=== PATIENT | female | born 1955 | race Caucasian/White ===

== ENCOUNTER 2017-04-24 10:32 | Outpatient (CLI) | payer OTHER ==
[2017-04-24 11:46] LABS: Hematocrit 37.9 % (36.0-47.0); Mean Platelet Volume 7.7 fL (7.4-10.4); White Blood Cell (WBC) Count 4.2 thou/uL (4.8-10.8)
[2017-04-24 12:03] LABS: Anion Gap 10 mmol/L (10-20); BUN (Urea Nitrogen) 14 mg/dL (9.8-20.1); Calc. Creatinine Clearance 0 mL/min (70-130); Calcium 9.5 mg/dL (7.8-10.44); Carbon Dioxide 31 mmol/L (23-31); Chloride 104 mmol/L (98-107); Estimated GFR-MDRD 59
--- NOTE | 2017-04-24 13:27 | EKG ---
Test Reason : Blood Pressure : / mmHG Vent. Rate : 066 BPM Atrial Rate : 066 BPM P-R Int : 144 ms QRS Dur : 078 ms QT Int : 390 ms P-R-T Axes : 080 061 064 degrees QTc Int : 408 ms Normal sinus rhythm Normal ECG When compared with ECG of 22-AUG-2016 10:47, No significant change was found Confirmed by DR. Jorge MINOR (3) on 04/24/2017 1:27:20 PM Referred By: WILLY Confirmed By:DR. Jorge MINOR
== END 2017-04-24 10:33 | disposition home or self-care (01) ==
LOC: LABBT 10:32
PROVIDERS: ATTEND Neurological Surgery
DX: Z01.818 Encounter for other preprocedural examination (principal); M54.12 Radiculopathy, cervical region
CPT/HCPCS: 80048; 85027; 93005; 93010

== ENCOUNTER 2017-05-21 10:40 | Outpatient (CLI) | payer OTHER ==
--- NOTE | 2017-05-21 13:16 | RAD ---
CERVICAL SPINE THREE VIEWS: History: 61-year-old female with history of cervicalgia with surgery on 05-06-17. Comparison: 08-27-13 FINDINGS: Anterior cervical fusion changes at C4-5 which are new. Old fusion changes are noted at C5-6 and C6-7 . The previously noted anterior metal plate and screws have been removed. There is some prevertebral soft tissue swelling and thickening of the prevertebral space from the C4 level caudally, probably re lated to recent prior surgery. Numerous surgical clips are noted in the mid and anterior neck. C2 odo ntoid and upper C1 obscured on the AP open mouth view. C7-T1 is also obscured on the lateral view. IMPRESSION: Recent anterior cervical fusion changes at C4-5. Old fusion changes at C5-6 and C6-7. Prevertebral so ft tissue fullness or swelling from C4 caudally, probably related to recent surgery. No significant m alalignment. POS: [facility]
== END 2017-05-21 10:41 | disposition home or self-care (01) ==
LOC: TBSIIMAG 10:40
PROVIDERS: ATTEND Physician Assistant
DX: M54.2 Cervicalgia (principal)
CPT/HCPCS: 72040

== ENCOUNTER 2017-07-09 15:44 | Outpatient (CLI) | payer OTHER ==
--- NOTE | 2017-07-09 16:38 | RAD ---
THREE VIEWS CERVICAL SPINE: 07/09/17 HISTORY: Cervicalgia. Followup surgery. COMPARISON: 07/21/16. Again noted are postsurgical changes of the cervical spine. Anterior plate and screws again transfix the C4-5 level with intradiscal prosthesis at the C4-5, C5-6 and C6-7 levels which are unchanged in p osition. Vertebral body heights are within normal limits. No fracture or subluxation is seen. C1 to c ervicothoracic junction is seen on the lateral view. Multiple surgical clips are seen overlying the a nterior neck. The prominence of the prevertebral soft tissues at the C5-6 and C6-7 levels is again no rick and unchanged. IMPRESSION: Stable postsurgical changes of the cervical spine with stable prominence and fullness of the preverte bral soft tissues anterior to lower cervical spine. POS: [facility]
== END 2017-07-09 15:45 | disposition home or self-care (01) ==
LOC: TBSIIMAG 15:44
PROVIDERS: ATTEND Neurological Surgery
DX: M54.2 Cervicalgia (principal); Z98.1 Arthrodesis status
CPT/HCPCS: 72040

== ENCOUNTER 2018-03-04 11:58 | Outpatient (CLI) | payer OTHER | END 2018-03-04 11:59 | disposition home or self-care (01) | LOC: BICMAMMO 11:58 | PROVIDERS: ATTEND Internal Medicine Hematology & Oncology | DX: Z12.31 Encounter for screening mammogram for malignant neoplasm of breast (principal); Z85.3 Personal history of malignant neoplasm of breast | CPT/HCPCS: 77063; 77067 ==

== ENCOUNTER 2018-08-06 09:24 | Outpatient (CLI) | payer BC ==
[2018-08-06] MEDS ORDERED: Gadobenate Dimeglumine 529 MG/1 ML (20ML VIAL) ONE (10:26)
--- NOTE | 2018-08-06 10:57 | RAD ---
LUMBAR SPINE THREE VIEWS: Indication: Lumbar stenosis/claudication. IMPRESSION: No abnormal translational motion. Moderate disc degenerative disease at L5-S1. Mild to moderate disc degenerative disease at L3-4. POS: [facility]
--- NOTE | 2018-08-06 12:42 | MRI ---
MRI LUMBAR SPINE WITH AND WITHOUT CONTRAST: DATE: 08-06-2018 HISTORY: 62-year-old female with M48.062, lumbar stenosis with claudication COMPARISON: 07-13-16 TECHNIQUE: Multiple sequences obtained in axial and sagittal planes, pre and post IV injection of gadolinium-bas ed contrast agent: 16 Ml MultiHance FINDINGS: For the purposes of this report, it will be assumed that there are five lumbar type vertebrae. Verteb ral body heights are maintained. No major spondylolisthesis. Mild disc space narrowing at L3-4. Moder ate to severe disc space narrowing at L5-S1 with Modic type II endplate changes and endplate irregula rity. Mild to moderate disc space narrowing at T11-12. L4-5 and the rest of the disc spaces are maint ained. T11-12: Large Schmorl's node. Again noted is the central and bilateral paracentral broad based disc h erniation which indents the ventral aspect of the spinal cord. Overall, there is mild to moderate alba tral spinal canal stenosis. No high grade neural foraminal stenosis. No major interval change. T12-L1: Normal. L1-2: There is a small focal central disc herniation which abuts the ventral surface of the conus med ullaris. No significant central stenosis, disc space narrowing or neural foraminal stenosis. No inter vasyl change. Disc herniation also abuts the ventral nerve roots as they emerge from the lower spinal c ord. L2-3: Normal. L3-4: Previously, there was severe central spinal canal stenosis. There has been interval laminectomy at this level, with bony hypertrophy of posterior elements, which questionably represents only bone chip fusion. There was previously a moderate to large disc bulge. This now has midline enhancement re presenting post surgical scar tissue, in addition to residual bulging disc material, which together s till contribute to the severe central stenosis. The degree of central spinal canal stenosis is even w orse now, with severe crowding of the cauda equina and obliteration of CSF signal. This results in to rtuosity of the cauda equina inferior and superior to this level, to a greater degree than previously . There is moderate to severe right neural foraminal stenosis, similar to previous MRI. There is cassi re left neural foraminal stenosis. L4-5: Moderate ligamentum flavum thickening and degenerative facet hypertrophy, plus diffuse disc bul ge (with posterior midline tear). These result in severe central spinal canal stenosis, and moderate bilateral neural foraminal stenosis. (Similar to the previous MRI). L5-S1: There is a right hemilaminotomy defect. No high grade central spinal canal stenosis. Bilateral moderate degenerative facet changes. Degenerative retrolisthesis of L5 on S1. Moderate bilateral dione ral foraminal stenosis. IMPRESSION: 1. Status post laminectomy at L3-4. 2. Despite this, there is interval worsening of extremely severe central spinal canal stenosis at L3- 4, with severe compression of the cauda equina. 3. Severe central spinal canal stenosis at L4-5 remains unchanged, including lateral recess stenosis. 4. Multilevel high grade neural foraminal stenosis, worst at left L3-4. 5. Status post right hemilaminotomy at L5-S1. MARBELLA Jiménez POS: [facility]
== END 2018-08-06 09:25 | disposition home or self-care (01) ==
LOC: TBSIIMAG 09:24
PROVIDERS: ATTEND Neurological Surgery
DX: M48.062 Spinal stenosis, lumbar region with neurogenic claudication (principal); M51.37 Other intervertebral disc degeneration, lumbosacral region; M51.36 Other intervertebral disc degeneration, lumbar region; Z98.890 Other specified postprocedural states
CPT/HCPCS: 72100; 72158; A9577

== ENCOUNTER 2019-03-24 13:37 | Outpatient (CLI) | payer BC ==
--- NOTE | 2019-03-24 16:17 | MMO ---
Bilateral MAMMO Bilat Screen DDI+DOV. CLINICAL HISTORY: Patient is 63 years old and is seen for screening. The patient has no family history of breast cancer. The patient has no personal history of cancer. 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 VIEWS: The views performed were: bilateral craniocaudal with tomosynthesis and bilateral mediolateral oblique with tomosynthesis. FILMS COMPARED: The present examination has been compared to prior imaging studies performed at [facility] on 01/31/2017 and 03/04/2018, and at [facility] on 01/06/2015 and 01/19/2016. This study has been interpreted with the assistance of computer-aided detection. MAMMOGRAM FINDINGS: There are scattered fibroglandular densities. Finding 1: There are stable benign appearing calcifications seen in both breasts. Finding 2: There is a stable post-surgical scar seen in the left breast. There are no suspicious masses, suspicious calcifications, or new areas of architectural distortion. IMPRESSION: THERE IS NO MAMMOGRAPHIC EVIDENCE OF MALIGNANCY. A ROUTINE FOLLOW-UP MAMMOGRAM IN 1 YEAR IS RECOMMENDED. THE RESULTS OF THIS EXAM WERE SENT TO THE PATIENT. ACR BI-RADS Category 2 - Benign finding MAMMOGRAPHY NOTE: 1. A negative mammogram report should not delay a biopsy if a dominant of clinically suspicious mass is present. 2. Approximately 10% to 15% of breast cancers are not detected by mammography. 3. Adenosis and dense breasts may obscure an underlying neoplasm. Reported by: DARELL EPPERSON MD Electonically Signed: [id number]
== END 2019-03-24 13:38 | disposition home or self-care (01) ==
LOC: BICMAMMO 13:37
PROVIDERS: ATTEND Internal Medicine Hematology & Oncology
DX: Z12.31 Encounter for screening mammogram for malignant neoplasm of breast (principal); Z98.890 Other specified postprocedural states
CPT/HCPCS: 77063; 77067

== ENCOUNTER 2020-02-19 17:30 | Outpatient (CLI) | payer BC | END 2020-02-19 17:31 | disposition home or self-care (01) | LOC: SLEEPLAB 17:30 | PROVIDERS: ATTEND Family Medicine | DX: G47.33 Obstructive sleep apnea (adult) (pediatric) (principal); F41.8 Other specified anxiety disorders; G47.00 Insomnia, unspecified; K21.9 Gastro-esophageal reflux disease without esophagitis; R06.83 Snoring; I10 Essential (primary) hypertension | CPT/HCPCS: 95806 ==

== ENCOUNTER 2020-03-28 10:50 | Outpatient (CLI) | payer BC ==
--- NOTE | 2020-03-28 12:12 | MMO ---
Bilateral MAMMO Bilat Screen DDI+DOV. CLINICAL HISTORY: Patient is 64 years old and is seen for screening. The patient has no family history of breast cancer. The patient has no personal history of cancer. 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 VIEWS: The views performed were: bilateral craniocaudal with tomosynthesis and bilateral mediolateral oblique with tomosynthesis. FILMS COMPARED: The present examination has been compared to prior imaging studies performed at [facility] on 01/31/2017, 03/04/2018 and 03/24/2019, and at [facility] on 01/19/2016. This study has been interpreted with the assistance of computer-aided detection. MAMMOGRAM FINDINGS: There are scattered fibroglandular densities. There are post operative changes seen in the left breast. There are no suspicious masses, suspicious calcifications, or new areas of architectural distortion. IMPRESSION: THERE IS NO MAMMOGRAPHIC EVIDENCE OF MALIGNANCY. A ROUTINE FOLLOW-UP MAMMOGRAM IN 1 YEAR IS RECOMMENDED. THE RESULTS OF THIS EXAM WERE SENT TO THE PATIENT. ACR BI-RADS Category 2 - Benign finding MAMMOGRAPHY NOTE: 1. A negative mammogram report should not delay a biopsy if a dominant of clinically suspicious mass is present. 2. Approximately 10% to 15% of breast cancers are not detected by mammography. 3. Adenosis and dense breasts may obscure an underlying neoplasm. Reported by: KEYUR MOE MD Electonically Signed: [id number]
== END 2020-03-28 10:51 | disposition home or self-care (01) ==
LOC: BICMAMMO 10:50
PROVIDERS: ATTEND Internal Medicine Hematology & Oncology
DX: Z12.31 Encounter for screening mammogram for malignant neoplasm of breast (principal); Z85.3 Personal history of malignant neoplasm of breast; Z98.890 Other specified postprocedural states
CPT/HCPCS: 77063; 77067

== ENCOUNTER 2021-09-04 12:07 | Outpatient (CLI) | payer MEDICARE, BC | END 2021-09-04 12:08 | disposition home or self-care (01) | LOC: ULT 12:07 | PROVIDERS: ATTEND Family Medicine | DX: R00.2 Palpitations (principal); I95.1 Orthostatic hypotension; G47.33 Obstructive sleep apnea (adult) (pediatric); R53.83 Other fatigue; I08.1 Rheumatic disorders of both mitral and tricuspid valves | CPT/HCPCS: 93225; 93226; 93306 ==

== ENCOUNTER 2022-01-03 10:19 | Outpatient (CLI) | payer MEDICARE, BC ==
[2022-01-03 11:24] LABS: Hemoglobin 13.5 g/dL (12.0-15.5); Mean Corpuscular HGB CONC 34.4 g/dL (32.0-36.0); Mean Corpuscular Hemoglobin 33.2 pg (27.0-33.0); Mean Corpuscular Volume 96.3 fl (81.6-98.3); Mean Platelet Volume 10.2 fl (7.4-10.4); Platelet Count 199 10x3/uL (150-450); RBC Distribution Width 11.4 % (11.5-14.5); Red Blood Cell (RBC) Count 4.07 10x6/uL (3.90-5.03); White Blood Cell (WBC) Count 3.1 10x3/uL (3.5-10.5)
[2022-01-03 12:02] LABS: Anion Gap 13 mmol/L (10-20); BUN (Urea Nitrogen) 13 mg/dL (9.8-20.1); Calc. Creatinine Clearance 0 mL/min (70-130); Calcium 9.2 mg/dL (7.8-10.44); Carbon Dioxide 26 mmol/L (23-31); Chloride 103 mmol/L (98-107); Estimated GFR 68; Glucose 97 mg/dL (80-115); Potassium 4.4 mmol/L (3.5-5.1); Sodium 138 mmol/L (136-145)
== END 2022-01-03 10:20 | disposition home or self-care (01) ==
LOC: LABBT 10:19
PROVIDERS: ATTEND Neurological Surgery
DX: Z01.818 Encounter for other preprocedural examination (principal); M48.062 Spinal stenosis, lumbar region with neurogenic claudication; Z20.822 Contact with and (suspected) exposure to COVID-19
CPT/HCPCS: 80048; 85027; 87811; 93005; 93010

== ENCOUNTER 2022-01-08 05:55 | Observation (INO) | payer MEDICARE, BC ==
[2022-01-08] MEDS ORDERED: fentaNYL Citrate/PF 100 MCG/2 ML SYRINGE ONE ×3 (06:53→09:34)
[2022-01-08] MEDS ORDERED: Famotidine/PF 20 mg/2ml Vial ONE (07:16)
[2022-01-08] MEDS ORDERED: Sodium Chloride 0.9% 100 ML ONE (07:17)
[2022-01-08] MEDS ORDERED: CEFAZOLIN 2 GM VIAL ONE (07:17)
[2022-01-08] MEDS ORDERED: Ondansetron PF 4 MG/2 ML Vial SLOW IVP PRN (07:34)
[2022-01-08] MEDS ORDERED: diphenhydrAMINE 50 MG/ML VIAL IVP PRN ×2 (07:34→10:45)
[2022-01-08] MEDS ORDERED: Morphine 2 MG/ML VIAL SLOW IVP PRN ×2 (07:34→10:45)
[2022-01-08] MEDS ORDERED: Cyclobenzaprine 10 MG TAB PO PRN (07:34)
[2022-01-08] MEDS ORDERED: Acetaminophen 325 MG TAB PO PRN (07:34)
[2022-01-08] MEDS ORDERED: Promethazine 25 MG TAB PO PRN ×2 (07:34→10:45)
[2022-01-08] MEDS ORDERED: traMADol HCl 50 MG TAB PO PRN ×3 (07:34→10:45)
[2022-01-08] MEDS ORDERED: Mag-Al 1200 mg/1200 mg/30 ML UDCUP PO PRN (07:34)
[2022-01-08] MEDS ORDERED: Zolpidem Tartrate 5 MG TAB PO PRN ×2 (07:37→16:00)
[2022-01-08] MEDS ORDERED: ePHEDrine 50 MG/ML VIAL ONE (07:39)
[2022-01-08] MEDS ORDERED: Phenylephrine 10 MG/ML VIAL ONE (07:39)
[2022-01-08] MEDS ORDERED: Ondansetron PF 4 MG/2 ML Vial ONE (07:39)
[2022-01-08] MEDS ORDERED: PROPOFOL 200 MG/20 ML VIAL ONE (07:39)
[2022-01-08] MEDS ORDERED: Dexamethasone 20 MG/5 ML VIAL ONE (07:39)
[2022-01-08] MEDS ORDERED: Lidocaine 1% PF 5 ML VIAL ONE (07:39)
[2022-01-08] MEDS ORDERED: Rocuronium Bromide 10 MG/ML (10ML VIAL) ONE (07:39)
[2022-01-08] MEDS ORDERED: ceFAZolin 2 GM/Dextrose 50 ML 2 GM in Premix Bag 1 BAG IVPB SCH (07:45)
[2022-01-08] MEDS ORDERED: Meperidine HCl/PF 25 MG/ML VIAL SLOW IVP PRN (08:19)
[2022-01-08] MEDS ORDERED: HYDROmorphone 2 MG/ML VIAL SLOW IVP PRN (08:19)
[2022-01-08] MEDS ORDERED: Promethazine HCl 25 MG/ML VIAL IVPB PRN (08:19)
[2022-01-08] MEDS ORDERED: SUGAMMADEX SODIUM 200 MG/2 ML VIAL ONE (08:30)
[2022-01-08] MEDS ORDERED: Lisinopril 10 MG TAB PO SCH (09:00)
[2022-01-08] MEDS ORDERED: Escitalopram Oxalate 20 mg Tablet PO SCH (09:00)
[2022-01-08] MEDS ORDERED: busPIRone HCl 5 MG TAB PO SCH (09:00)
[2022-01-08] MEDS: Acetaminophen/Codeine 30-300mg Tablet PO PRN (10:25)
[2022-01-08] MEDS: Sodium Chloride 0.9% 1,000 ML IV SCH ×2 (10:30→20:35)
[2022-01-08 10:44] VITALS: BMI 29.1
[2022-01-08] MEDS ORDERED: Morphine 4 MG/ML VIAL SLOW IVP PRN (10:45)
[2022-01-08] MEDS ORDERED: Promethazine HCl 12.5 MG SUPP PR PRN (10:45)
[2022-01-08] MEDS ORDERED: Ondansetron PF 4 MG/2 ML Vial IM PRN (10:45)
[2022-01-08] MEDS ORDERED: diphenhydrAMINE 25 MG CAP PO PRN (10:45)
[2022-01-08] MEDS ORDERED: Promethazine HCl 25 MG/ML VIAL IM PRN (10:45)
[2022-01-08] MEDS: HYDROcodone/Acetaminophen 10/325 mg Tablet PO PRN ×3 (12:53→21:40)
[2022-01-08] MEDS: Milk Of Magnesia 30 ML UDCUP PO PRN (12:53)
[2022-01-08] MEDS: CEFAZOLIN 2 GM in Sodium Chloride 0.9% 100 ML IVPB SCH ×2 (12:57→21:39)
[2022-01-08] MEDS: busPIRone HCl 5 MG TAB PO SCH (20:40)
[2022-01-09] MEDS: HYDROcodone/Acetaminophen 10/325 mg Tablet PO PRN ×3 (02:34→10:47)
[2022-01-09] MEDS: Acetaminophen/Codeine 30-300mg Tablet PO PRN (04:46)
[2022-01-09 05:14] LABS: #Lymphocytes 0.9 thou/uL (1.20-3.40); #Monocytes 0.7 thou/uL (0.11-0.59); #Neutrophils 9.5 thou/uL (1.40-6.50); %Basophils 0.1 % (0.0-1.0); %Eosinophils 0.1 % (0.0-10.0); %Lymphocytes 7.8 % (21.0-51.0); %Monocytes 6.7 % (0.0-10.0); %Neutrophils 85.4 % (42.0-75.0); Hemoglobin 11.3 g/dL (12.0-16.0); Mean Corpuscular HGB CONC 33.8 g/dL (32.0-36.0); Mean Corpuscular Hemoglobin 34.3 pg (27.0-31.0); Mean Platelet Volume 7.1 fL (7.4-10.4); Platelet Count 179 thou/uL (130-400); RBC Distribution Width 10.9 % (11.5-14.5); White Blood Cell (WBC) Count 11.1 thou/uL (4.8-10.8)
[2022-01-09 05:30] LABS: ALT (SGPT) 48 U/L (8-55); AST (SGOT) 51 U/L (5-34); Albumin 3.9 g/dL (3.4-4.8); Alkaline Phosphatase 84 U/L (40-110); Anion Gap 13 mmol/L (10-20); BUN (Urea Nitrogen) 15 mg/dL (9.8-20.1); Bilirubin, Total 0.3 mg/dL (0.2-1.2); Calc. Creatinine Clearance 76 mL/min (70-130); Calcium 8.8 mg/dL (7.8-10.44); Carbon Dioxide 28 mmol/L (23-31); Chloride 101 mmol/L (98-107); Estimated GFR 70; Globulin 2.4 g/dL (2.4-3.5); Glucose 129 mg/dL (80-115); Potassium 4.6 mmol/L (3.5-5.1); Protein, Total 6.3 g/dL (5.8-8.1); Sodium 137 mmol/L (136-145)
[2022-01-09] MEDS ORDERED: Levothyroxine Sodium 125 MCG TAB PO SCH ×2 (06:00)
[2022-01-09] MEDS ORDERED: Levothyroxine Sodium 25 MCG TAB PO SCH (06:00)
[2022-01-09] MEDS ORDERED: Levothyroxine Sodium 112 MCG TAB PO SCH (06:00)
[2022-01-09 08:05] VITALS: BP 113/72; TEMP 98
[2022-01-09] MEDS ORDERED: Atorvastatin Calcium 10 MG TAB PO SCH (09:00)
[2022-01-09] MEDS ORDERED: Lisinopril 10 MG TAB PO SCH (09:00)
[2022-01-09] MEDS ORDERED: Escitalopram Oxalate 20 mg Tablet PO SCH (09:00)
[2022-01-09] MEDS ORDERED: Calcium Carbonate 600 MG TAB PO SCH (09:00)
[2022-01-09] MEDS: busPIRone HCl 5 MG TAB PO SCH (09:17)
[2022-01-09] MEDS: Sodium Chloride 0.9% 1,000 ML IV SCH (10:40)
[2022-01-09] MEDS: Milk Of Magnesia 30 ML UDCUP PO PRN (10:48)
== END 2022-01-09 11:05 | disposition home or self-care (01) ==
LOC: SDC 05:55 → MSONC 10:17
PROVIDERS: ADMIT Neurological Surgery; ATTEND Neurological Surgery
PROC: 0SG1071 Fusion of 2 or more Lumbar Vertebral Joints with Autologous Tissue Substitute, Posterior Approach, Posterior Column, Open Approach (ICD-10-PCS; principal; 2022-01-08)
DX: M48.062 Spinal stenosis, lumbar region with neurogenic claudication (principal); I10 Essential (primary) hypertension; E89.0 Postprocedural hypothyroidism; E78.5 Hyperlipidemia, unspecified; Z85.3 Personal history of malignant neoplasm of breast; Z87.891 Personal history of nicotine dependence; Z79.1 Long term (current) use of non-steroidal anti-inflammatories (NSAID); Z79.899 Other long term (current) drug therapy; Z88.8 Allergy status to other drugs, medicaments and biological substances; Z98.1 Arthrodesis status
CPT/HCPCS: 20930; 20936; 22612; 22614; 22842; 76000; 80053; 85025; 97110; 97116; C1713 ×3; C1768; 36415; 96372; 96374; 96375; 96376; G0378; J0690; J1100; J2270; J2370; J2405; J2704; J3370; J3490; J7050; S0028

== ENCOUNTER 2022-01-10 13:00 | Emergency (ER) | payer MEDICARE, BC ==
[~2022-01-10 13:00] MED LIST: Iopamidol-370 76% 500 ML 1 ML ONE
[2022-01-10 13:25] LABS: #Eosinphils 0.1 thou/uL (0.0-0.7); #Lymphocytes 2.2 thou/uL (1.20-3.40); #Monocytes 0.7 thou/uL (0.11-0.59); #Neutrophils 4.4 thou/uL (1.40-6.50); %Basophils 0.6 % (0.0-1.0); %Lymphocytes 29.1 % (21.0-51.0); %Monocytes 9.2 % (0.0-10.0); %Neutrophils 59.1 % (42.0-75.0); Hemoglobin 11.4 g/dL (12.0-16.0); Mean Corpuscular HGB CONC 33.1 g/dL (32.0-36.0); Mean Corpuscular Hemoglobin 34.3 pg (27.0-31.0); Platelet Count 181 thou/uL (130-400); RBC Distribution Width 11.1 % (11.5-14.5); Red Blood Cell (RBC) Count 3.32 mill/uL (4.20-5.40); White Blood Cell (WBC) Count 7.5 thou/uL (4.8-10.8)
[2022-01-10 13:45] LABS: ALT (SGPT) 82 U/L (8-55); AST (SGOT) 92 U/L (5-34); Albumin 4.2 g/dL (3.4-4.8); Alkaline Phosphatase 133 U/L (40-110); Anion Gap 11 mmol/L (10-20); BUN (Urea Nitrogen) 17 mg/dL (9.8-20.1); Bilirubin, Total 0.4 mg/dL (0.2-1.2); Calc. Creatinine Clearance 0 mL/min (70-130); Carbon Dioxide 29 mmol/L (23-31); Chloride 99 mmol/L (98-107); Estimated GFR 69; Globulin 2.7 g/dL (2.4-3.5); Glucose 91 mg/dL (80-115); Potassium 4.3 mmol/L (3.5-5.1); Protein, Total 6.9 g/dL (5.8-8.1); Sodium 135 mmol/L (136-145)
[2022-01-10] MEDS ORDERED: Promethazine 25 MG TAB ONE (14:09)
[2022-01-10] MEDS ORDERED: HYDROcodone/Acetaminophen 5/325 mg Tablet ONE (15:13)
[2022-01-10] MEDS ORDERED: diphenhydrAMINE 12.5 MG/5 ML UDCUP ONE (16:02)
[2022-01-10] MEDS ORDERED: diphenhydrAMINE 50 MG/ML VIAL ONE (16:04)
[2022-01-10 16:05] LABS: Bacteria/HPF None Seen HPF (None Seen); Bilirubin Negative (Negative); Blood, Urine Trace (Negative); Clarity Clear (Clear); Glucose, Urine (Dipstick) Normal (Negative); Ketone, Urine 40 mg/dL (Negative); Leukocyte Negative Leu/uL (Negative); Nitrite Negative (Negative); Protein, Urine (Dipstick) Negative (Neg-Trace); RBC/HPF None Seen HPF (0-3); Specific Gravity, Urine 1.033 (1.002-1.036); Squamous Epithelial 0-3 HPF (0-3); Urobilinogen Normal mg/dL (Less than 2); WBC/HPF 0-3 HPF (0-3); pH, Urine 5.5 (5.0-9.0)
[2022-01-10] MEDS ORDERED: Prochlorperazine 10 MG/2 ML VIAL IVP SCH (16:30)
== END 2022-01-10 16:48 | disposition home or self-care (01) ==
LOC: ERS 13:00
DX: G89.18 Other acute postprocedural pain (principal); R11.0 Nausea; R51.9 Headache, unspecified; I10 Essential (primary) hypertension; E03.9 Hypothyroidism, unspecified; Z87.891 Personal history of nicotine dependence; Z79.899 Other long term (current) drug therapy
CPT/HCPCS: 36415; 71045; 71275; 80053; 81003; 81015; 83605; 85025; 85379; 93005; 96374; 96375; J0780; J1200; Q0163; Q0169; Q9967

== ENCOUNTER 2022-02-01 09:02 | Outpatient (CLI) | payer MEDICARE, BC | END 2022-02-01 09:03 | disposition home or self-care (01) | LOC: TBSIIMAG 09:02 | PROVIDERS: ATTEND Neurological Surgery | DX: M48.062 Spinal stenosis, lumbar region with neurogenic claudication (principal); M43.26 Fusion of spine, lumbar region; M51.36 Other intervertebral disc degeneration, lumbar region | CPT/HCPCS: 72100 ==

== ENCOUNTER 2022-03-13 09:53 | Outpatient (CLI) | payer MEDICARE, BC | END 2022-03-13 09:54 | disposition home or self-care (01) | LOC: TBSIIMAG 09:53 | PROVIDERS: ATTEND Neurological Surgery | DX: M47.816 Spondylosis without myelopathy or radiculopathy, lumbar region (principal); Z98.890 Other specified postprocedural states | CPT/HCPCS: 72100 ==